=== PATIENT | male | born 2000 | race Caucasian/White ===

== ENCOUNTER 2019-04-05 22:27 | Inpatient (IN) | payer OTHER ==
[~2019-04-05 22:27] MED LIST: ISOVUE-370 76%-LOCM 1 ML ONE
[2019-04-05 22:47] LABS: #Eosinphils 0.1 thou/uL (0.0-0.7); #Lymphocytes 2.6 thou/uL (1.20-3.40); #Monocytes 0.7 thou/uL (0.11-0.59); #Neutrophils 8.3 thou/uL (1.40-6.50); %Basophils 0.3 % (0.0-1.0); %Eosinophils 0.7 % (0.0-10.0); %Lymphocytes 22.2 % (28.0-48.0); %Monocytes 6.3 % (0.0-4.0); %Neutrophils 70.5 % (31.0-61.0); Hemoglobin 15.4 g/dL (14.0-18.0); Mean Corpuscular HGB CONC 34.3 g/dL (32.0-36.0); Mean Corpuscular Hemoglobin 29.4 pg (25.0-35.0); Mean Corpuscular Volume 85.7 fL (78.0-98.0); Mean Platelet Volume 8.4 fL (7.4-10.4); Platelet Count 195 thou/uL (130-400); RBC Distribution Width 12.5 % (11.5-14.5); Red Blood Cell (RBC) Count 5.23 mill/uL (4.00-5.20); White Blood Cell (WBC) Count 11.8 thou/uL (4.8-10.8)
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
[2019-04-05] MEDS ORDERED: Ondansetron PF 4 MG/2 ML Vial ONE (23:01)
[2019-04-05] MEDS ORDERED: Morphine 4 MG/ML VIAL ONE (23:01)
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
[2019-04-05 23:10] LABS: ALT (SGPT) 22 U/L (8-55); AST (SGOT) 37 U/L (10-45); Albumin 4.6 g/dL (3.5-5.0); Alkaline Phosphatase 65 U/L (Less than 750); Anion Gap 16 mmol/L (10-20); BUN (Urea Nitrogen) 19 mg/dL (8.4-21.0); Bilirubin, Total 0.3 mg/dL (0.2-1.2); Calc. Creatinine Clearance 0 mL/min (70-130); Calcium 10.3 mg/dL (7.8-10.44); Carbon Dioxide 24 mmol/L (22-29); Chloride 104 mmol/L (98-107); Estimated GFR-MDRD 80; Globulin 3.5 g/dL (2.4-3.5); Glucose 120 mg/dL (70-105); Potassium 3.5 mmol/L (3.5-5.1); Protein, Total 8.1 g/dL (6.0-8.3); Sodium 140 mmol/L (136-145)
[2019-04-05] MEDS ORDERED: CEFAZOLIN 1 GM VIAL ONE (23:11)
[2019-04-05] MEDS ORDERED: Adacel (T-DAP) 0.5 ML SYRINGE ONE (23:11)
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
[2019-04-05] MEDS ORDERED: Lidocaine 1% w/Epinephrine 1:100K 20 ML VIAL ONE (23:12)
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
[2019-04-06] MEDS ORDERED: Bacitracin Zinc 1 Packet ONE (00:51)
[2019-04-06] MEDS ORDERED: hydrALAZINE 20 MG/ML VIAL SLOW IVP PRN (01:41)
[2019-04-06] MEDS ORDERED: Sodium Chloride 0.9% 1,000 ML IV SCH (01:41)
[2019-04-06] MEDS ORDERED: Dextrose 5% in Water 1,000 ML IV PRN (01:41)
[2019-04-06] MEDS ORDERED: Dextrose 50% Abboject 50 ML SYRINGE SLOW IVP PRN (01:41)
[2019-04-06] MEDS ORDERED: Morphine 2 MG/ML SYRINGE SLOW IVP PRN (01:41)
[2019-04-06] MEDS ORDERED: Promethazine HCl 25 MG/ML VIAL IM PRN ×2 (01:41)
[2019-04-06] MEDS ORDERED: Gabapentin 300 MG CAP PO SCH (01:41)
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
[2019-04-06] MEDS: traMADol HCl 50 MG TAB PO SCH ×4 (02:02→19:57)
[2019-04-06] MEDS: Acetaminophen 500 MG TAB PO SCH ×4 (02:03→19:56)
[2019-04-06] MEDS: Ketorolac Tromethamine 30 MG/ML VIAL IVP SCH ×4 (02:04→19:56)
[2019-04-06 02:30] VITALS: BMI 24.3
[2019-04-06 04:57] LABS: #Lymphocytes 1.1 thou/uL (1.20-3.40); #Neutrophils 12.1 thou/uL (1.40-6.50); %Eosinophils 0.1 % (0.0-10.0); %Monocytes 7.1 % (0.0-4.0); %Neutrophils 84.8 % (31.0-61.0); Hemoglobin 13.5 g/dL (14.0-18.0); Mean Corpuscular HGB CONC 32.8 g/dL (32.0-36.0); Mean Corpuscular Hemoglobin 28.8 pg (25.0-35.0); Mean Corpuscular Volume 87.9 fL (78.0-98.0); Mean Platelet Volume 8.1 fL (7.4-10.4); Platelet Count 199 thou/uL (130-400); RBC Distribution Width 12.6 % (11.5-14.5); White Blood Cell (WBC) Count 14.2 thou/uL (4.8-10.8)
[2019-04-06] MEDS ORDERED: Ondansetron PF 4 MG/2 ML Vial IVP PRN (05:00)
[2019-04-06] MEDS ORDERED: Ondansetron ODT 4 MG TAB PO PRN (05:00)
[2019-04-06 05:26] LABS: Anion Gap 13 mmol/L (10-20); BUN (Urea Nitrogen) 18 mg/dL (8.4-21.0); Calc. Creatinine Clearance 106 mL/min (70-130); Calcium 9.8 mg/dL (7.8-10.44); Carbon Dioxide 24 mmol/L (22-29); Chloride 103 mmol/L (98-107); Estimated GFR-MDRD 77; Glucose 112 mg/dL (70-105); Potassium 4.5 mmol/L (3.5-5.1); Sodium 135 mmol/L (136-145)
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
[2019-04-06] MEDS: Famotidine 20 MG TAB PO SCH ×2 (08:18→19:57)
[2019-04-06] MEDS: Gabapentin 300 MG CAP PO SCH ×3 (08:19→19:57)
[2019-04-06] MEDS ORDERED: Lidocaine 1% (PF) 30 ML VIAL SC SCH (09:15)
--- NOTE | 2019-04-06 09:16 | RAD ---
CHEST 1 VIEW: Date: 04/06/19 HISTORY: Follow-up pneumothorax. COMPARISON: Chest, abdomen, and pelvis CT scan dated 04/05/19. FINDINGS: There is a small to moderate right-sided pneumothorax which appears to have increased somewhat in siz e from the prior study. No significant compressive atelectasis. Heart size is normal. The left lung i s clear. IMPRESSION: Small to moderate right-sided pneumothorax showing some increase in size from the prior 04/05/19 CT. Continue short-term follow-up. POS: TPC
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
[2019-04-06] MEDS: Cyclobenzaprine 10 MG TAB PO PRN (10:47)
--- NOTE | 2019-04-06 11:09 | PDOC.OP ---
Operative Note - Operative Note Operative Note: INDICATION: Pneumothorax Resident: Loretta Bains MD PYG-1 Supervised by: Yuri Ruelas PA-C and Dr Vinh Lawrence MD Consent was obtained from patient prior to the procedure. Indications, risks, and benefits were explained at length. PROCEDURE SUMMARY: A time out was performed and after the chest x-ray was reviewed, the appropriate side was confirmed and marked. Hands were washed immediately prior to the procedure. Surgical mask with protective eyewear, sterile gown and sterile gloves worn throughout the procedure. The patient was prepped and draped in a sterile manner using chlorhexidine scrub after the patient was positioned in the usual fashion. A total of 10 ml of 1% lidocaine was used to anesthesize the skin, subcutaneous tissue, superior aspect of the rib periosteum and parietal pleura. A 2 cm incision was then made parallel to the rib in the midaxillary line at the level of the 4th rib on the right side. The subcutaneous tissue superficial and superior to the rib was dissected bluntly to the level of the pleura. The pleura was then entered bluntly. Air was noted from the pleural space. The disruption in the parietal pleura was expanded bluntly and a finger was inserted and swept carefully in all directions. A 28 [place] chest tube was then inserted using my finger as a guide. The chest tube was directed superior and inserted easily. The chest tube was sutured to the skin at the insertion site, and connected securely with tape to a pleurovac. A sterile occlusive dressing was placed over the insertion site. No immediate complications were noted. A post-procedure chest x-ray is pending at the time of this note. Imaging was reviewed with Dr Lawrence and appeared to be in the correct location. Estimated blood loss is <5ml.
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
[2019-04-07] MEDS: Acetaminophen 500 MG TAB PO SCH ×4 (01:57→20:02)
[2019-04-07] MEDS: Ketorolac Tromethamine 30 MG/ML VIAL IVP SCH ×2 (01:57→08:10)
[2019-04-07] MEDS: traMADol HCl 50 MG TAB PO SCH ×4 (01:57→20:03)
[2019-04-07] MEDS: Cyclobenzaprine 10 MG TAB PO PRN (05:35)
[2019-04-07] MEDS: Famotidine 20 MG TAB PO SCH (08:09)
[2019-04-07] MEDS: Gabapentin 300 MG CAP PO SCH ×3 (08:09→20:03)
[2019-04-07] MEDS: Enoxaparin Sodium 40 MG/0.4 ML SYRINGE SC SCH (08:10)
--- NOTE | 2019-04-07 08:29 | RAD ---
CHEST 1 VIEW: HISTORY: Followup chest tube, right-sided pneumothorax. COMPARISON: 04/06/2019. FINDINGS: Right chest tube remains in place. Heart size is normal. The lungs are clear. IMPRESSION: Stable chest with right chest tube. Continue short-term followup. POS: TPC
--- NOTE | 2019-04-07 10:21 | PRG ---
DATE OF SERVICE: 04/07/2019 SUBJECTIVE: Mr. Santos is complaining of more chest soreness today. No shortness of breath. Tolerating regular diet. OBJECTIVE: VITAL SIGNS: Blood pressure 116/73, pulse 71, respirations 16. He is afebrile. Chest tube output is minimal. CHEST: Bilateral clear breath sounds. HEART: Regular rate and rhythm. EXTREMITIES: Examination of his lower back reveals the suction to be a little on the aggressive side. When it is decreased to 20 cm of suction, there is no obvious air leak. ASSESSMENT: Chest tube placement. morning chest x-ray, convert to water-seal. Likely can discontinue the drain tomorrow. Job ID: [id number]
[2019-04-07] MEDS: Ibuprofen 600 MG TAB PO SCH ×2 (14:37→22:12)
[2019-04-07] MEDS: Cepastat Lozenges 1 LOZ PO PRN (23:08)
[2019-04-08] MEDS: traMADol HCl 50 MG TAB PO SCH (01:43)
[2019-04-08] MEDS: Acetaminophen 500 MG TAB PO SCH ×3 (01:43→15:06)
[2019-04-08] MEDS: Ibuprofen 600 MG TAB PO SCH ×2 (06:07→15:06)
[2019-04-08] MEDS: Cyclobenzaprine 10 MG TAB PO PRN (06:09)
[2019-04-08] MEDS: Cepastat Lozenges 1 LOZ PO PRN (06:11)
[2019-04-08] MEDS ORDERED: traMADol HCl 50 MG TAB PO PRN (06:56)
--- NOTE | 2019-04-08 07:54 | RAD ---
PORTABLE CHEST: Date: 04/08/19 PROVIDED CLINICAL HISTORY: Chest tube. FINDINGS: Comparison with 04/07/19. Cardiac and mediastinal silhouette is unchanged in appearance. Right-sided chest tube is again seen i n similar position. No focal consolidation, pleural fluid, or pneumothorax apparent. IMPRESSION: Stable radiographic appearance of the chest. POS: OFF
[2019-04-08] MEDS: Enoxaparin Sodium 40 MG/0.4 ML SYRINGE SC SCH (08:20)
[2019-04-08] MEDS: Gabapentin 300 MG CAP PO SCH ×2 (08:20→15:06)
[2019-04-08] MEDS ORDERED: Polyethylene Glycol 3350 17 GM Packet PO SCH (09:00)
[2019-04-08] MEDS ORDERED: Senokot 8.6 MG TAB PO SCH (09:00)
[2019-04-08 15:42] VITALS: BP 114/70; TEMP 98.3
--- NOTE | 2019-04-08 15:55 | RAD ---
Chest 2 views HISTORY: Chest tube removal. FINDINGS: Right thoracostomy tube no longer visible. Apical pleural line on the right at the inferior aspect of the posterior right third rib. No pneumothorax on the left. Mediastinum is midline. IMPRESSION: Very small right apical pneumothorax, stable.
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
== END 2019-04-08 19:10 | disposition home or self-care (01) | DRG 200 ==
LOC: ERS 22:27 → SURG A 23:14 → OBSVTOIN 23:14
PROVIDERS: ADMIT Specialist; ATTEND Specialist
PROC: 0W9930Z Drainage of Right Pleural Cavity with Drainage Device, Percutaneous Approach (ICD-10-PCS; principal; 2019-04-06)
DX: S27.0XXA Traumatic pneumothorax, initial encounter (principal); S22.43XA Multiple fractures of ribs, bilateral, initial encounter for closed fracture; S27.321A Contusion of lung, unilateral, initial encounter; S06.0X0A Concussion without loss of consciousness, initial encounter; S01.01XA Laceration without foreign body of scalp, initial encounter; V89.2XXA Person injured in unspecified motor-vehicle accident, traffic, initial encounter
CPT/HCPCS: 36415; 70450; 70498; 71045; 71046; 71260; 72125; 74177; 80048; 80053; 85025; 90715; 94640; G0390; J0690; J1650; J1885; J2001; J2270; J2405; J7620; Q0162; Q9966